=== PATIENT | female | born 1960 | race Caucasian/White ===

== ENCOUNTER 2021-12-18 05:15 | Day surgery (SDC) | payer OTHER ==
[2021-12-13 14:52] VITALS: BMI 33.5
[2021-12-18] MEDS ORDERED: ELECTROLYTE-148 SOLN 1,000 ML IV SCH (11:00)
[2021-12-18] MEDS ORDERED: MIDAZOLAM HCL 2 MG/2 ML SINGLE DOSE VIAL ONE (11:07)
[2021-12-18] MEDS ORDERED: ceFAZolin SODIUM 1 GM VIAL IVPB ONE (11:31)
[2021-12-18 14:32] VITALS: TEMP 97
[2021-12-18 14:45] VITALS: BP 155/65; PULSE 85
== END 2021-12-18 14:10 | disposition home or self-care (01) ==
LOC: JASU-SURG 05:15
PROVIDERS: ATTEND Urology
PROC: 0TF4XZZ Fragmentation in Left Kidney Pelvis, External Approach (ICD-10-PCS; principal; 2021-12-18 10:45)
DX: N20.0 Calculus of kidney (principal); E11.9 Type 2 diabetes mellitus without complications; I10 Essential (primary) hypertension
CPT/HCPCS: 82962

== ENCOUNTER 2022-02-26 04:43 | Day surgery (SDC) | payer OTHER ==
[2022-02-21 11:21] VITALS: BMI 34.4
[2022-02-26] MEDS ORDERED: oxyCODONE HCL 5 MG TABLET PO PRN (10:57)
[2022-02-26] MEDS ORDERED: ONDANSETRON 4 MG/2 ML VIAL IVPUSH PRN (10:57)
[2022-02-26] MEDS ORDERED: LACTATED RINGERS SOLUTION 1,000 ML IV SCH (11:00)
[2022-02-26] MEDS ORDERED: MIDAZOLAM HCL 2 MG/2 ML SINGLE DOSE VIAL ONE ×2 (11:17→11:38)
[2022-02-26] MEDS ORDERED: FENTANYL CITRATE/PF 50 MCG/ML VIAL ONE (11:18)
[2022-02-26] MEDS ORDERED: PROPOFOL 20 ML ONE (11:38)
[2022-02-26] MEDS ORDERED: SUCCINYLCHOLINE CHLORIDE 200 MG/10 ML SYRINGE ONE (11:38)
[2022-02-26] MEDS ORDERED: ELECTROLYTE-148 SOLN 1,000 ML IV SCH (11:45)
[2022-02-26 12:50] VITALS: TEMP 97.9
[2022-02-26 13:38] VITALS: BP 125/65; PULSE 77
== END 2022-02-26 14:10 | disposition home or self-care (01) ==
LOC: JASU-SURG 04:43
PROVIDERS: ATTEND Urology
PROC: 0TF3XZZ Fragmentation in Right Kidney Pelvis, External Approach (ICD-10-PCS; principal; 2022-02-26 12:00)
DX: N20.0 Calculus of kidney (principal)
CPT/HCPCS: 82962

== ENCOUNTER 2022-05-21 04:28 | Day surgery (SDC) | payer OTHER ==
[2022-05-16 09:43] VITALS: BMI 34.4
[2022-05-21 09:21] VITALS: RESP 18
[2022-05-21] MEDS ORDERED: MIDAZOLAM HCL 2 MG/2 ML SINGLE DOSE VIAL ONE (10:41)
[2022-05-21] MEDS ORDERED: ceFAZolin SODIUM 1 GM VIAL ONE (11:29)
[2022-05-21] MEDS ORDERED: ceFAZolin SODIUM 1 GM VIAL IVPB ONE (11:29)
[2022-05-21] MEDS ORDERED: ELECTROLYTE-148 SOLN 1,000 ML IV SCH (11:45)
[2022-05-21 13:01] VITALS: BP 123/68; PULSE 78; TEMP 97.8
== END 2022-05-21 13:00 | disposition home or self-care (01) ==
LOC: JASU-SURG 04:28
PROVIDERS: ATTEND Urology
PROC: 0TF4XZZ Fragmentation in Left Kidney Pelvis, External Approach (ICD-10-PCS; principal; 2022-05-21 11:00)
DX: N20.0 Calculus of kidney (principal); I10 Essential (primary) hypertension; E11.9 Type 2 diabetes mellitus without complications
CPT/HCPCS: 82962

== ENCOUNTER 2023-10-21 04:00 | Day surgery (SDC) | payer OTHER ==
[2023-10-16 12:58] VITALS: BMI 32.5
[2023-10-21 07:09] VITALS: TEMP 97.7
[2023-10-21] MEDS ORDERED: PROPOFOL 20 ML ONE (09:06)
[2023-10-21] MEDS ORDERED: MIDAZOLAM HCL 2 MG/2 ML SINGLE DOSE VIAL ONE ×2 (09:06→09:23)
[2023-10-21] MEDS ORDERED: KETOROLAC TROMETHAMINE 30 MG/1 ML VIAL ONE (09:06)
[2023-10-21] MEDS ORDERED: ONDANSETRON 4 MG/2 ML VIAL ONE (09:06)
[2023-10-21] MEDS ORDERED: ceFAZolin SODIUM 1 GM VIAL IVPB ONE (09:25)
[2023-10-21] MEDS ORDERED: ceFAZolin SODIUM 1 GM VIAL ONE (09:25)
[2023-10-21 09:55] VITALS: RESP 16
[2023-10-21] MEDS ORDERED: ELECTROLYTE-148 SOLN 1,000 ML IV SCH (10:00)
[2023-10-21 10:44] VITALS: BP 120/84; PULSE 76
== END 2023-10-21 10:50 | disposition home or self-care (01) ==
LOC: JASU-SURG 04:00
PROVIDERS: ATTEND Urology
PROC: 0TF4XZZ Fragmentation in Left Kidney Pelvis, External Approach (ICD-10-PCS; principal; 2023-10-21 09:00)
DX: N20.0 Calculus of kidney (principal)
CPT/HCPCS: 82962